=== PATIENT | male | born 1985 | race Hispanic/Latino ===

== ENCOUNTER 2021-10-31 05:00 | Emergency (ER) | payer SELFPAY ==
[2021-10-31 05:03] VITALS: BP 131/78; PULSE 51; RESP 16; TEMP 36.4; O2SAT 99
--- NOTE | 2021-10-31 05:19 | ED.GENADULT ---
HPI - General Adult General Chief complaint: Skin/Abscess/Foreign Body Stated complaint: rash to arm and abd Time Seen by Provider: 10/31/21 05:03 History of Present Illness HPI narrative: Patient is a 36-year-old male who presents ER with rash. Located over his chest and arms and under his neck. Began yesterday and has persisted. Itching. No fevers or chills or sweats. No new medications. It began after patient had been in [place] and was [place] out firewood. Unknown if he got into any poison deepthi/sumac. No difficulty breathing or swallowing. Related Data Allergies Allergy/AdvReac Type Severity Reaction Status Date / Time No Known Allergies Allergy Verified 10/31/21 05:01 Review of Systems Constitutional: Constitutional: Denies chills and Denies fever(s) ENT: Denies dysphagia and Denies sore throat Respiratory: Respiratory: Denies cough and Denies dyspnea Integumentary/Breasts: Skin/Breast: Reports pruritus, Reports erythema, Reports rash and Denies skin ulcer PMFSH Past Medical History Medical History (Updated 10/31/21 @ 05:22 by Brooks Rivera MD) Healthy adult male Surgical History Surgical History (Updated 10/31/21 @ 05:20 by Brooks Rivera MD) No pertinent past surgical history Social History Social History (Updated 10/31/21 @ 05:20 by Brooks Rivera MD) Smoking status: Never smoker Exam Narrative: GENERAL: Well-appearing, well-nourished, and in no acute distress. HEAD: Normocephalic, atraumatic. CHEST: Clear to auscultation. No respiratory distress. HEART: Regular rate and rhythm. Normal peripheral pulses. EXTREMITIES: Normal range of motion. No edema. SKIN: Warm, dry. Red raised rash to abdomen above the waistline and under the neck and volar aspects of the arms. Nothing on the dorsal aspect of the arms or the back. No pustules or vesicles or excoriations. NEURO: Alert and oriented x3. PSYCH: Normal mood and affect. Course Course Emergency Course: Discussed that we will give him Benadryl here and then we will treat him with prednisone. Patient may also take Benadryl as needed for itching. Was felt to be contact/allergic dermatitis. Patient does not take any oral medications to be having systemic reaction. No anaphylaxis. Vital Signs Vital signs: Vital Signs Temperature 97.5 F L 10/31/21 05:03 Pulse Rate 51 L 10/31/21 05:03 Respiratory Rate 16 10/31/21 05:03 Blood Pressure 131/78 10/31/21 05:03 Pulse Oximetry 99 10/31/21 05:03 Oxygen Delivery Room Air 10/31/21 05:03 Temperature 97.5 F L 10/31/21 05:03 Pulse Rate 51 L 10/31/21 05:03 Respiratory Rate 16 10/31/21 05:03 Blood Pressure 131/78 10/31/21 05:03 Pulse Oximetry 99 10/31/21 05:03 Oxygen Delivery Room Air 10/31/21 05:03 Medical Decision Making Vital Signs Vital Signs: Vital Signs Temperature 97.5 F L 10/31/21 05:03 Pulse Rate 51 L 10/31/21 05:03 Respiratory Rate 16 10/31/21 05:03 Blood Pressure 131/78 10/31/21 05:03 Pulse Oximetry 99 10/31/21 05:03 Oxygen Delivery Room Air 10/31/21 05:03 Temperature 97.5 F L 10/31/21 05:03 Pulse Rate 51 L 10/31/21 05:03 Respiratory Rate 16 10/31/21 05:03 Blood Pressure 131/78 10/31/21 05:03 Pulse Oximetry 99 10/31/21 05:03 Oxygen Delivery Room Air 10/31/21 05:03 Discharge Plan Discharge Clinical Impression: Contact dermatitis Patient Disposition: Home, Self-Care Condition: Stable Instructions: Contact Dermatitis (ED) Additional Instructions: Return the ER if you cannot breathe, you cannot swallow, you have worsening rash, you have additional concerns. Patient Language: Welsh Prescriptions: New prednisone 50 mg tablet 50 mg PO DAILY Qty: 7 0RF Follow-up/Referrals: PHYSICIAN NOT ON STAFF,NONSTAFF [Primary Care Provider] - 1 Week
[2021-10-31] MEDS: diphenhydrAMINE HCl CAP 25 MG CAPSULE PO (05:41)
== END 2021-10-31 05:43 | disposition home or self-care (01) ==
LOC: ANHED 05:24
PROVIDERS: Emergency Provider Emergency Medicine
DX: L25.9 Unspecified contact dermatitis, unspecified cause (principal)
CPT/HCPCS: 99283; A9270